=== PATIENT | male | born 1965 | race Two or more races ===

== ENCOUNTER 2025-03-07 12:34 | Inpatient (IN) | payer MEDICARE, OTHER ==
[~2025-03-07] VITALS: Ht 170.2 cm; Wt 90.7 kg
[2025-03-07] MEDS ORDERED: PHENOBARBITAL SODIUM 130 MG/ML VIAL IV ONE (13:00)
[2025-03-07 13:07] LABS: BASOPHILS # (AUTO) 0.1 K/uL (0.0-0.2); BASOPHILS % (AUTO) 1.6 % (0.0-2.0); EOSINOPHILS # (AUTO) 0.1 K/uL (0.0-0.7); EOSINOPHILS % (AUTO) 2.1 % (0.0-6.0); HEMATOCRIT 30 % (39-51); HEMOGLOBIN 10.3 g/dL (13.5-17.5); LYMPHOCYTES # (AUTO) 1.2 K/uL (0.8-4.8); LYMPHOCYTES % (AUTO) 20.6 % (20.0-44.0); MEAN CORPUSCULAR HEMOGLOBIN 40 PG (26.0-33.0); MEAN CORPUSCULAR HGB CONC 35 g/dl (31.0-36.0); MEAN CORPUSCULAR VOLUME 115 fL (80-96); MONOCYTES # (AUTO) 0.6 K/uL (0.1-1.30); MONOCYTES % (AUTO) 9.6 % (2.0-12.0); NEUTROPHILS # (AUTO) 3.8 K/uL (1.8-8.9); NEUTROPHILS % (AUTO) 66.1 % (43.0-81.0); PLATELET COUNT (AUTO) 143 K/uL (150-450); RED BLOOD CELL COUNT(AUTO) 2.58 MIL/uL (4.5-6.0); RED CELL DISTRIBUTION WIDTH 18.3 % (11.5-15.0); WHITE BLOOD COUNT (AUTO) 5.8 K/uL (4.3-11.0)
[2025-03-07] MEDS ORDERED: PHENOBARBITAL SODIUM 130 MG/ML VIAL ONE (13:09)
[2025-03-07 13:25] LABS: ALANINE AMINOTRANSFERASE 73 U/L (12-78); ALKALINE PHOSPHATASE 124 U/L (46-116); ASPARTATE AMINOTRANSFERASE 88 U/L (15-37); BILIRUBIN,DIRECT 1.1 mg/dL (0.0-0.2); BILIRUBIN,TOTAL 1.6 mg/dL (0.2-1.0); CALCIUM, SERUM 7.3 mg/dL (8.5-10.1); CARBON DIOXIDE 24 mmol/L (21-32); CHLORIDE 101 mmol/L (98-107); CREATININE 1.9 mg/dL (0.6-1.3); GLUCOSE 139 mg/dL (74-106); POTASSIUM 3.4 mmol/L (3.5-5.1); SODIUM SERUM 137 mmol/L (136-145); UREA NITROGEN, BLOOD 18 mg/dL (7-18)
[2025-03-07 13:26] LABS: ALCOHOL, BLOOD < 10 mg/dL (0-10)
[2025-03-07] MEDS ORDERED: IV NS 0.9% 250 ML IV ONE (13:34)
[2025-03-07] MEDS ORDERED: IOHEXOL-300 100 ML VIAL IV ONE (13:34)
[2025-03-07] MEDS ORDERED: LORAZEPAM INJ 2 MG/ML VIAL ONE (13:58)
[2025-03-07] MEDS: LORAZEPAM INJ 2 MG/ML VIAL IV ONE (14:00)
[2025-03-07] MEDS: IV NS 0.9% 1,000 ML BAG IV ONE (14:05)
[2025-03-07] MEDS ORDERED: AMLO-212 PO (14:29)
[2025-03-07] MEDS ORDERED: LOSA100T31 PO (14:29)
[2025-03-07] MEDS ORDERED: CLON0.5T4 PO (14:29)
[2025-03-07] MEDS ORDERED: ACETAMINOPHEN 325 MG TABLET PO PRN (15:30)
[2025-03-07] MEDS ORDERED: Z GUARD REMEDY 4 OZ OINT TP PRN (15:30)
[2025-03-07] MEDS ORDERED: ONDANSETRON HCL/PF 4 MG/2 ML VIAL IVP PRN (15:30)
[2025-03-07 16:00] VITALS: BP 124/88; TEMP 98.1; O2SAT 98
[2025-03-07] MEDS: IV NS 0.9% 1,000 ML IV PRN (19:05)
[2025-03-07 20:00] VITALS: BP 103/75; TEMP 97.2; O2SAT 100
[2025-03-08] VITALS: BP 119/75; TEMP 97.7; O2SAT 100
[2025-03-08 04:00] VITALS: BP 120/70; TEMP 97.9; O2SAT 100
[2025-03-08 06:50] LABS: BASOPHILS # (AUTO) 0.1 K/uL (0.0-0.2); BASOPHILS % (AUTO) 1.1 % (0.0-2.0); EOSINOPHILS # (AUTO) 0.2 K/uL (0.0-0.7); HEMATOCRIT 27 % (39-51); HEMOGLOBIN 9.4 g/dL (13.5-17.5); LYMPHOCYTES # (AUTO) 1.4 K/uL (0.8-4.8); LYMPHOCYTES % (AUTO) 24.9 % (20.0-44.0); MEAN CORPUSCULAR HEMOGLOBIN 40 PG (26.0-33.0); MEAN CORPUSCULAR HGB CONC 35 g/dl (31.0-36.0); MEAN CORPUSCULAR VOLUME 116 fL (80-96); MONOCYTES # (AUTO) 0.6 K/uL (0.1-1.30); MONOCYTES % (AUTO) 11.2 % (2.0-12.0); NEUTROPHILS # (AUTO) 3.4 K/uL (1.8-8.9); NEUTROPHILS % (AUTO) 59.8 % (43.0-81.0); PLATELET COUNT (AUTO) 131 K/uL (150-450); RED BLOOD CELL COUNT(AUTO) 2.34 MIL/uL (4.5-6.0); RED CELL DISTRIBUTION WIDTH 17.8 % (11.5-15.0); WHITE BLOOD COUNT (AUTO) 5.7 K/uL (4.3-11.0)
[2025-03-08 07:26] LABS: CREATININE 1.3 mg/dL (0.6-1.3); PHOSPHORUS 4.3 mg/dL (2.5-4.9); POTASSIUM 3.2 mmol/L (3.5-5.1)
[2025-03-08 07:49] LABS: CALCIUM, SERUM 6.5 mg/dL (8.5-10.1)
[2025-03-08 08:00] VITALS: BP 146/78; TEMP 97.8; O2SAT 100
[2025-03-08 08:18] LABS: MAGNESIUM 0.9 mg/dL (1.8-2.4)
[2025-03-08] MEDS: PANTOPRAZOLE 40 MG TABLET.DR PO SCH (08:36)
[2025-03-08] MEDS: THIAMINE HCL 100 MG TABLET PO SCH (08:37)
[2025-03-08] MEDS: Magnesium 1GM/D5W 100ML PREMIX PIGGYBACK IV SCH (10:01)
[2025-03-08] MEDS: POTASSIUM CHLORIDE 20 MEQ TAB.PRT.SR PO SCH (10:02)
[2025-03-08 10:03] LABS: THYROID STIMULATING HORMONE 1.29 uIU/mL (0.358-3.74)
[2025-03-08 12:00] VITALS: BP 137/62; TEMP 98.2; O2SAT 100
[2025-03-08] MEDS: LORAZEPAM INJ 2 MG/ML VIAL IV PRN (12:52)
[2025-03-08] MEDS: MAGNESIUM OXIDE 400 MG TABLET PO ONE (13:37)
[2025-03-08 16:00] VITALS: BP 128/62; TEMP 98.8; O2SAT 100
[2025-03-08] MEDS: LACTULOSE 10 G/15 ML UDC (PYXIS) PO SCH (16:49)
[2025-03-08] MEDS: CYANOCOBALAMIN 1,000 MCG/ML VIAL IM SCH (17:04)
[2025-03-08] MEDS: LACTULOSE 10 G/15 ML UDC (PYXIS) PO ONE (17:05)
[2025-03-08 20:00] VITALS: BP 124/98; TEMP 97.9; O2SAT 98
[2025-03-09 04:00] VITALS: BP 137/98; TEMP 97.8; O2SAT 98
[2025-03-09 06:31] LABS: BASOPHILS # (AUTO) 0.1 K/uL (0.0-0.2); BASOPHILS % (AUTO) 1.1 % (0.0-2.0); EOSINOPHILS # (AUTO) 0.1 K/uL (0.0-0.7); EOSINOPHILS % (AUTO) 2.4 % (0.0-6.0); HEMATOCRIT 28 % (39-51); HEMOGLOBIN 9.5 g/dL (13.5-17.5); LYMPHOCYTES # (AUTO) 1.4 K/uL (0.8-4.8); LYMPHOCYTES % (AUTO) 22.9 % (20.0-44.0); MEAN CORPUSCULAR HEMOGLOBIN 40 PG (26.0-33.0); MEAN CORPUSCULAR HGB CONC 34 g/dl (31.0-36.0); MEAN CORPUSCULAR VOLUME 116 fL (80-96); MONOCYTES # (AUTO) 0.8 K/uL (0.1-1.30); MONOCYTES % (AUTO) 13.2 % (2.0-12.0); NEUTROPHILS # (AUTO) 3.7 K/uL (1.8-8.9); NEUTROPHILS % (AUTO) 60.4 % (43.0-81.0); PLATELET COUNT (AUTO) 139 K/uL (150-450); RED BLOOD CELL COUNT(AUTO) 2.39 MIL/uL (4.5-6.0); RED CELL DISTRIBUTION WIDTH 17.6 % (11.5-15.0); WHITE BLOOD COUNT (AUTO) 6.2 K/uL (4.3-11.0)
[2025-03-09 07:06] LABS: ALBUMIN 2.7 g/dL (3.4-5.0); BILIRUBIN,TOTAL 0.9 mg/dL (0.2-1.0); CALCIUM, SERUM 7.5 mg/dL (8.5-10.1); PHOSPHORUS 3.3 mg/dL (2.5-4.9); POTASSIUM 3.9 mmol/L (3.5-5.1); TOTAL PROTEIN, SERUM 6.4 g/dL (6.4-8.2)
[2025-03-09 07:41] LABS: MAGNESIUM 1.1 mg/dL (1.8-2.4)
[2025-03-09] MEDS: Magnesium 1GM/D5W 100ML PREMIX 100 ML IV SCH (11:14)
[2025-03-09] MEDS: MAGNESIUM OXIDE 400 MG TABLET PO ONE ×4 (11:15→14:30)
[2025-03-09] MEDS: LACTULOSE 10 G/15 ML UDC (PYXIS) PO ONE (11:15)
[2025-03-09 12:00] VITALS: BP 137/98; TEMP 97.8; O2SAT 98
[2025-03-09] MEDS ORDERED: THIA100T68 PO (12:07)
== END 2025-03-09 16:55 | disposition home or self-care (01) | DRG 100 ==
LOC: ER 12:40 → TELE1 14:54 → MEDSG1 03-08 09:50
PROVIDERS: ADMIT Nurse Practitioner Acute Care; ATTEND Nurse Practitioner Acute Care
DX: R56.9 Unspecified convulsions (principal); N17.0 Acute kidney failure with tubular necrosis; F10.139 Alcohol abuse with withdrawal, unspecified; E72.20 Disorder of urea cycle metabolism, unspecified; M48.56XA Collapsed vertebra, not elsewhere classified, lumbar region, initial encounter for fracture; E86.0 Dehydration; F32.A Depression, unspecified; Y90.0 Blood alcohol level of less than 20 mg/100 ml; F17.200 Nicotine dependence, unspecified, uncomplicated; E80.6 Other disorders of bilirubin metabolism; R74.8 Abnormal levels of other serum enzymes; K76.0 Fatty (change of) liver, not elsewhere classified; K70.9 Alcoholic liver disease, unspecified; Z53.20 Procedure and treatment not carried out because of patient's decision for unspecified reasons; R74.01 Elevation of levels of liver transaminase levels; D53.9 Nutritional anemia, unspecified; E53.8 Deficiency of other specified B group vitamins; E66.9 Obesity, unspecified; Z68.31 Body mass index [BMI] 31.0-31.9, adult; E87.6 Hypokalemia; E83.42 Hypomagnesemia; I10 Essential (primary) hypertension; G47.33 Obstructive sleep apnea (adult) (pediatric); E86.9 Volume depletion, unspecified; Z79.899 Other long term (current) drug therapy
CPT/HCPCS: 36415; 70450-TC; 71045-TC; 80048-TC; 80053-TC; 80076-TC; 82140-TC; 82607-TC; 83735-TC; 83921; 84100-TC; 84443-TC; 85025-TC; 97112-TC; 97116-TC; 97530-TC; A4223; G0378; G0480; J2060; J2560; J3420; J3475; J7030; J7050; Q9967